=== PATIENT | male | born 1970 | race Caucasian/White ===

== ENCOUNTER → 2016-07-12 | Outpatient (CLI) | payer BC ==
[~2016-07-12] MED LIST: BUSP15TA70 PO; FLUO40CA8 PO; KLN5X PO; PANT40TA PO; SIMV-151 PO; VORT1TAB3 PO; WLLSR100 PO
[2016-07-12 09:34] LABS: BASO % 0.4 %; BASO ABS # 0.02 K/uL (0-0.2); COMPLETE YES; EOS % 3.2 %; HEMATOCRIT 44.2 % (42-52); IG% 0.2 %; LYMPH % 40.1 %; LYMPH ABS # 2.15 K/uL (1.2-3.4); MEAN CELL VOLUME 85.7 fL (80-100); MEAN CORPUSCULAR HEMOGLOBIN 31.2 pg (25-34); MEAN CORPUSCULAR HGB CONC 36.4 g/dl (32-36); MEAN PLATELET VOLUME 9.9 fL (7.4-10.4); MONO % 8.4 %; NEUT % 47.7 %; PLATELET COUNT 197 K/uL (130-400); RED BLOOD COUNT 5.16 M/uL (4.7-6.1); WHITE BLOOD COUNT 5.36 K/uL (4.8-10.8)
[2016-07-12 09:54] LABS: ALT/SGPT 32 U/L (12-78); AST/SGOT 18 U/L (15-37); BLOOD UREA NITROGEN 20 mg/dl (7-18); BUN/CREATININE RATIO 15.3 (10-20); CALCIUM 8.8 mg/dl (8.5-10.1); CARBON DIOXIDE 26 mmol/L (21-32); CHLORIDE 105 mmol/L (98-107); CHOLESTEROL 173 mg/dl (0-200); GLUCOSE 85 mg/dl (70-99); POTASSIUM 4.4 mmol/L (3.5-5.1); SODIUM 140 mmol/L (136-145)
[2016-07-12 10:05] LABS: ALB/GLOB RATIO 1.3 (0.9-2); ALKALINE PHOSPHATASE 92 U/L (45-117); CHOLESTEROL/HDL RATIO 4.6; HDL CHOLESTEROL 38 mg/dl; LDL CHOLESTEROL CALCULATED 98 mg/dl; TRIGLYCERIDES 184 mg/dl (0-150); VERY LOW DENSITY LIPOPROT CALC 37 mg/dl
== END | disposition home or self-care (01) ==
LOC: C.LAB1850 07:09
PROVIDERS: ATTEND Internal Medicine
DX: E78.5 Hyperlipidemia, unspecified (principal); I51.7 Cardiomegaly

== ENCOUNTER 2016-07-13 06:15 | Emergency (ER) | payer BC ==
[~2016-07-13] VITALS: Ht 172.7 cm; Wt 106.8 kg
[~2016-07-13 06:15] MED LIST changes: -KLN5X PO; -PANT40TA PO; -VORT1TAB3 PO
[2016-07-13 06:20] VITALS: TEMP 36.7; Ht 172.7 cm; Wt 106.8 kg
[2016-07-13 06:32] VITALS: O2SAT 97
[2016-07-13] MEDS ORDERED: ALUMINUM/MAGNESIUM SUSP 30 ML UDC PO STA (06:50)
[2016-07-13] MEDS ORDERED: LIDOCAINE HCL 2% VISC SOLN 20 ML UDC PO STA (06:50)
[2016-07-13] MEDS ORDERED: KLN5X PO (06:56)
[2016-07-13] MEDS ORDERED: VORT1TAB3 PO (06:56)
[2016-07-13 06:59] LABS: BASO % 0.3 %; BASO ABS # 0.02 K/uL (0-0.2); COMPLETE YES; EOS % 2.2 %; HEMATOCRIT 42.4 % (42-52); IG% 0.2 %; LYMPH % 40.8 %; MEAN CELL VOLUME 85.3 fL (80-100); MEAN CORPUSCULAR HEMOGLOBIN 30.6 pg (25-34); MEAN CORPUSCULAR HGB CONC 35.8 g/dl (32-36); MEAN PLATELET VOLUME 9.6 fL (7.4-10.4); MONO % 9.9 %; NEUT % 46.6 %; PLATELET COUNT 191 K/uL (130-400); RED BLOOD COUNT 4.97 M/uL (4.7-6.1); WHITE BLOOD COUNT 5.88 K/uL (4.8-10.8)
--- NOTE | 2016-07-13 07:09 | EMERGENCY ROOM VISIT NOTE ---
History Report prepared by Lynne: Dee Law Under the Supervision of: Dr. Catina Francisco M.D. 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 pt reports he wakes with the chest pain. describes pain as sharp. pain goes away after getting up and moving around. pt states he does not have hx of GERD. pt ate chili last night before going to bed. denies radiation of pain. denies N/V/D History of Present Illness The patient is a 45 year old male who presents to the Emergency Room with complaints of an episode of moderate central chest pain that began an hour ago. It was sharp. Nothing seems to make it better or worse. Currently, he still has some discomfort in his central chest. He had a similar episode of chest pain 4 days ago that went away on its own. Today he decided to come to the ER since it was the second occurrence of the symptoms. The patient did not have any similar symptoms prior to 4 days ago. He reports eating chili for dinner last night. The patient does not usually get heartburn pain. He has never had a stress test. He does not take aspirin. He has been taking 2-200mg Advil at night for rotator cuff pain over the past 2 weeks. He denies radiating pain, shortness of breath, or other complaints. No recent long trips. He does not have a history of diabetes, hypertension, or kidney problems. Source of History: patient Onset: an hour ago Position: chest (central) Symptom Intensity: moderate Quality: sharp Timing: other (episode) Associated Symptoms: No SOB Review of Systems See HPI for pertinent positives & negatives. A total of 10 systems reviewed and were otherwise negative. Past Medical & Surgical Medical Problems: (1) Anxiety (2) GERD (gastroesophageal reflux disease) (3) OCD (obsessive compulsive disorder) (4) Sleep apnea Family History Patient reports no known family medical history. Social History Smoking Status: Never Smoker Drug Use: none Marital Status: single Housing Status: lives with family Occupation Status: employed Current/Historical Medications Scheduled Buspirone Hcl (Buspar), 15 MG PO TID Clonazepam (Clonazepam), 0.5 MG PO AMPM Pantoprazole (Protonix), 40 MG PO DAILY Simvastatin (Simvastatin), 20 MG PO DAILY Vortioxetine HBr (Trintellix), 20 MG PO DAILY Allergies Coded Allergies: No Known Allergies (Unverified , 07/13/16) Physical Exam Vital Signs Date Time Temp Pulse Resp B/P Pulse Ox O2 Delivery O2 Flow Rate FiO2 07/13/16 09:30 63 16 124/88 97 Room Air 07/13/16 08:15 67 16 120/79 95 Room Air 07/13/16 06:33 97 Room Air 07/13/16 06:32 97 Room Air 07/13/16 06:26 65 07/13/16 06:20 36.7 60 16 121/74 96 Room Air Physical Exam Vital signs reviewed. General: Well-appearing 45 year old male, in no significant distress. HEENT: No scleral icterus, PERRLA, neck supple. Atraumatic. Cardiovascular: Regular rate and rhythm, no extra sounds. Pulmonary: Clear to auscultation bilaterally, normal work of breathing. Abdomen: Soft, nontender, nondistended, positive bowel sounds. Musculoskeletal: Atraumatic, no peripheral edema. Neurologic: Patient awake alert and oriented x 3, full strength in all 4 extremities. Cranial nerves 2 through 12 grossly intact. Skin: Warm, dry, no rash Medical Decision & Procedures ER Provider Diagnostic Interpretation: Radiology results as stated below per my review and radiologist interpretation: SINGLE VIEW CHEST CLINICAL HISTORY: Atypical chest pain. FINDINGS: An AP, portable, upright chest radiograph is compared to study dated 01/12/2015. The heart is top normal for projection. The pulmonary vasculature is noncongested. There is minimal bibasilar atelectasis. The lungs and pleural spaces are otherwise clear. No pneumothorax is seen. The bony thorax is grossly intact. IMPRESSION: No active disease in the chest. Electronically signed by: Tone Lim M.D. 07/13/2016 7:08 AM Dictated Date/Time: 07/13/2016 7:08 AM Laboratory Results 07/13/16 06:28 Red Blood Count 4.97, Mean Corpuscular Volume 85.3, Mean Corpuscular Hemoglobin 30.6, Mean Corpuscular Hemoglobin Concent 35.8, Mean Platelet Volume 9.6, Neutrophils (%) (Auto) 46.6, Lymphocytes (%) (Auto) 40.8, Monocytes (%) (Auto) 9.9, Eosinophils (%) (Auto) 2.2, Basophils (%) (Auto) 0.3, Neutrophils # (Auto) 2.74, Lymphocytes # (Auto) 2.40, Monocytes # (Auto) 0.58, Eosinophils # (Auto) 0.13, Basophils # (Auto) 0.02 07/13/16 06:28 Test 07/13/16 06:28 07/13/16 08:31 White Blood Count 5.88 K/uL (4.8-10.8) Red Blood Count 4.97 M/uL (4.7-6.1) Hemoglobin 15.2 g/dL (14.0-18.0) Hematocrit 42.4 % (42-52) Mean Corpuscular Volume 85.3 fL (80-100) Mean Corpuscular Hemoglobin 30.6 pg (25-34) Mean Corpuscular Hemoglobin Concent 35.8 g/dl (32-36) Platelet Count 191 K/uL (130-400) Mean Platelet Volume 9.6 fL (7.4-10.4) Neutrophils (%) (Auto) 46.6 % Lymphocytes (%) (Auto) 40.8 % Monocytes (%) (Auto) 9.9 % Eosinophils (%) (Auto) 2.2 % Basophils (%) (Auto) 0.3 % Neutrophils # (Auto) 2.74 K/uL (1.4-6.5) Lymphocytes # (Auto) 2.40 K/uL (1.2-3.4) Monocytes # (Auto) 0.58 K/uL (0.11-0.59) Eosinophils # (Auto) 0.13 K/uL (0-0.5) Basophils # (Auto) 0.02 K/uL (0-0.2) RDW Standard Deviation 39.8 fL (36.4-46.3) RDW Coefficient of Variation 12.9 % (11.5-14.5) Immature Granulocyte % (Auto) 0.2 % Immature Granulocyte # (Auto) 0.01 K/uL (0.00-0.02) Anion Gap 9.0 mmol/L (3-11) Est Creatinine Clear Calc Drug Dose 86.8 ml/min Estimated GFR () 77.5 Estimated GFR (Non- 66.8 BUN/Creatinine Ratio 15.9 (10-20) Calcium Level 8.8 mg/dl (8.5-10.1) Total Bilirubin 0.6 mg/dl (0.2-1) Direct Bilirubin 0.1 mg/dl (0-0.2) Aspartate Amino Transf (AST/SGOT) 14 U/L (15-37) Alanine Aminotransferase (ALT/SGPT) 29 U/L (12-78) Alkaline Phosphatase 84 U/L (45-117) Total Creatine Kinase 111 U/L (39-308) Creatine Kinase MB 1.5 ng/ml (0.5-3.6) Creatine Kinase MB Ratio 1.4 (0-3.0) Total Protein 7.0 gm/dl (6.4-8.2) Albumin 4.0 gm/dl (3.4-5.0) Lipase 334 U/L (73-393) Bedside Troponin I 0.000 ng/ml (0-0.045) Laboratory results per my review. 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 A complete history and physical examination was performed. Ordered Maalox Susp 30 ml PO, Lidocaine HCl 10 ml PO. 0842: I reassessed the patient. He still had some pain but states that it has improved since waking up this morning. 0930: Upon reevaluation, the patient was comfortable. I discussed findings with him. He verbalized agreement of the treatment plan. The patient was discharged home. Medical Decision Chest pain: Acute coronary syndrome, pulmonary embolus, aortic dissection, musculoskeletal pain, pneumonia, pleural effusion, pneumothorax This patient was evaluated and appeared to be in no significant distress. IV access was obtained and laboratory work was drawn. The patient was given a GI cocktail as he has been on ibuprofen the last several weeks due to a shoulder injury. EKG reveals no evidence of acute ischemic change, laboratory work reveals negative cardiac enzymes 2. Chest x-ray is clear. I do not suspect an acute coronary event at this time. The patient was instructed to follow-up with his primary care physician for further cardiac testing this week if indicated. He will be placed on Protonix 40 mg daily for the next month. He was advised to use the NSAID sparingly as needed. He will return to the emergency department for worsening of symptoms or any medical concerns. Impression Primary Impression: Substernal chest pain Additional Impression: GERD (gastroesophageal reflux disease) Scribe Attestation The scribe's documentation has been prepared under my direction and personally reviewed by me in its entirety. I confirm that the note above accurately reflects all work, treatment, procedures, and medical decision making performed by me. Departure Information Dispostion Home / Self-Care Prescriptions Pantoprazole (Protonix) 40 Mg Tab 40 MG PO DAILY, #30 TAB Prov: Catina Francisco M.D. 07/13/16 Referrals Andrew Wu M.D. (PCP) Patient Instructions My [facility] Additional Instructions Diagnosis: Substernal chest pain. Protonix 40 mg daily 30 days. Discontinue any anti-inflammatory medications including Aleve, ibuprofen and aspirin. Follow-up with your physician this week for reevaluation and consideration of further cardiac testing. Return to the ER for worsening of symptoms or any medical concerns. Problem Qualifiers Additional Impression: GERD (gastroesophageal reflux disease) Esophagitis presence: esophagitis presence not specified Qualified Codes: K21.9 - Gastro-esophageal reflux disease without esophagitis
[2016-07-13 07:11] LABS: BUN/CREATININE RATIO 15.9 (10-20); CALCIUM 8.8 mg/dl (8.5-10.1); CREATININE 1.3 mg/dl (0.60-1.40); POTASSIUM 4.3 mmol/L (3.5-5.1)
[2016-07-13 07:16] LABS: CKMB/CK RATIO 1.4 (0-3.0)
[2016-07-13] MEDS ORDERED: PANT40TA PO (09:27)
[2016-07-13 09:30] VITALS: BP 124/88; PULSE 63; O2SAT 97
== END 2016-07-13 09:40 | disposition home or self-care (01) ==
LOC: C.EDB 06:16
DX: K21.9 Gastro-esophageal reflux disease without esophagitis (principal); F41.9 Anxiety disorder, unspecified; F42.9 Obsessive-compulsive disorder, unspecified; G47.30 Sleep apnea, unspecified

== ENCOUNTER → 2017-02-09 | Outpatient (CLI) | payer BC ==
[~2017-02-09] VITALS: Ht 172.7 cm; Wt 110.0 kg
[~2017-02-09] MED LIST changes: -FLUO40CA8 PO; +KLN5X PO; +VORT1TAB3 PO; -WLLSR100 PO
[2017-02-09 13:13] VITALS: BP 108/76; PULSE 88; Ht 172.7 cm; Wt 110.0 kg
== END | disposition home or self-care (01) ==
LOC: C.NEUR 12:49
PROVIDERS: ATTEND Physician Assistant
DX: G47.33 Obstructive sleep apnea (adult) (pediatric) (principal)

== ENCOUNTER → 2017-07-25 | Outpatient (CLI) | payer BC ==
[2017-07-25 12:19] LABS: AST/SGOT 13 U/L (15-37); BLOOD UREA NITROGEN 24 mg/dl (7-18); CALCIUM 9.2 mg/dl (8.5-10.1); CARBON DIOXIDE 28 mmol/L (21-32); CREATININE 1.32 mg/dl (0.60-1.40); GLUCOSE 92 mg/dl (70-99); POTASSIUM 4.7 mmol/L (3.5-5.1); SODIUM 137 mmol/L (136-145)
[2017-07-25 12:25] LABS: ALT/SGPT 31 U/L (12-78); CHOLESTEROL 180 mg/dl (0-200); LDL CHOLESTEROL CALCULATED 108 mg/dl
== END | disposition home or self-care (01) ==
LOC: C.LAB1850 10:16
PROVIDERS: ATTEND Internal Medicine
DX: E78.5 Hyperlipidemia, unspecified (principal); R07.9 Chest pain, unspecified